=== PATIENT | female | born 1955 | race Two or more races ===

== ENCOUNTER 2024-09-25 05:50 | Day surgery (SDC) | payer OTHER ==
[2024-09-23 12:51] VITALS: BP 135/83
[~2024-09-25] VITALS: Ht 170.2 cm; Wt 86.6 kg
[2024-09-25] MEDS ORDERED: CEFAZOLIN SODIUM 1,000 MG VIAL ONE (10:02)
[2024-09-25] MEDS ORDERED: MORPHINE SULFATE 4 MG/ML VIAL IV ONE ×2 (12:00→12:45)
== END 2024-09-25 14:15 | disposition home or self-care (01) ==
LOC: CIR.AMB 05:50
PROVIDERS: ATTEND Surgery
DX: C50.412 Malignant neoplasm of upper-outer quadrant of left female breast (principal); R59.0 Localized enlarged lymph nodes; K76.0 Fatty (change of) liver, not elsewhere classified